=== PATIENT | male | born 1995 | race Caucasian/White ===

== ENCOUNTER 2020-02-18 10:04 | Inpatient (IN) ==
[2020-02-18 16:16] VITALS: BP 113/68
[2020-02-18] MEDS ORDERED: NICOTINE GUM BUCCAL PRN (16:22)
[2020-02-18] MEDS ORDERED: MAALOX PLUS LIQUID PO PRN (16:22)
[2020-02-18] MEDS ORDERED: D5W 1,000 ML IV PRN (16:22)
[2020-02-18] MEDS ORDERED: SEROQUEL PO PRN (16:22)
[2020-02-18] MEDS ORDERED: MOTRIN PO PRN (16:22)
[2020-02-18] MEDS ORDERED: NICODERM PATCH TD PRN (16:22)
[2020-02-18] MEDS ORDERED: ZOFRAN IM PRN (16:22)
[2020-02-18] MEDS ORDERED: PHENOBARBITAL IV PRN (16:22)
[2020-02-18] MEDS ORDERED: TUBERSOL ID ONE (16:22)
[2020-02-18] MEDS ORDERED: IMODIUM PO PRN ×2 (16:22)
[2020-02-18] MEDS ORDERED: SENOKOT PO PRN (16:22)
[2020-02-18] MEDS ORDERED: ZOFRAN ODT PO PRN (16:22)
[2020-02-18] MEDS ORDERED: TYLENOL PO PRN (16:22)
[2020-02-18] MEDS ORDERED: DULCOLAX PR PRN (16:22)
[2020-02-18] MEDS ORDERED: ZOFRAN IV PRN (16:22)
[2020-02-18] MEDS ORDERED: DESYREL PO PRN (16:22)
[2020-02-18 17:11] LABS: HEMATOCRIT 39.8 % (42.0-52.0); HEMOGLOBIN 14.5 g/dL (14.0-18.0); MCH 30.2 PG (27-31); MCHC 36.4 g/dL (33-37); MCV 82.9 FL (81-99); MPV 10.2 FL (7.4-10.4); RBC 4.8 XMIL (4.7-6.1); RDW 12.7 % (11.5-14.5); WBC 7.65 X1000 (4.8-10.8)
[2020-02-18 17:22] LABS: AGAP 11; ALBUMIN 4.5 g/dL (3.5-5.0); ALKALINE PHOSPHATASE 72 U/L (32-122); AMYLASE 42 U/L (20-200); BUN 10 mg/dL (8-22); CALCIUM 9.6 mg/dL (8.8-10.2); CHLORIDE 101 mmol/L (98-107); COSMO 278; ESTIMATED GFR > 60; GLUCOSE 90 mg/dL (70-104); GOT 14 U/L (10-34); GPT 10 U/L (10-44); LIPASE 30 U/L (13-60); POTASSIUM 4.2 mmol/L (3.5-5.1); SODIUM 140 mmol/L (136-145); TCO2 29 mmol/L (25-35); TOTAL PROTEIN 7.3 g/dL (6.3-8.3)
[2020-02-18 17:30] LABS: URINE SOURCE VOIDED
[2020-02-18 17:38] LABS: BILIRUBIN URINE NEGATIVE (NEGATIVE); BLOOD URINE NEGATIVE (NEGATIVE); COLOR YELLOW; GLUCOSE URINE NEGATIVE (NEGATIVE); KETONE URINE TRACE mg/dL (NEGATIVE); LEUKOCYTES URINE NEGATIVE (NEGATIVE); NITRITE URINE NEGATIVE (NEGATIVE); PROTEIN URINE 50 mg/dL (NEGATIVE); SP GRAVITY URINE 1.039; TURBIDITY URINE HAZY (CLEAR); UROBILINOGEN URINE 3 mg/dL (NORMAL)
[2020-02-18 17:40] LABS: UR EPITHELIAL CELLS <10 /HPF (<10); URINE BACTERIA NEGATIVE /HPF; URINE RBC <10 /HPF (<10); URINE WBC <10 /HPF (<10)
[2020-02-18 17:41] LABS: URINE CASTS NONE SEEN; URINE CRYSTALS NONE SEEN; URINE SMALL ROUND CELLS NONE SEEN; URINE YEAST NONE SEEN
[2020-02-18 17:46] LABS: UR CANNABINOIDS QUAL PRESUMPTIVE POSITIVE (NONE DETECT)
[2020-02-18 17:47] LABS: UR AMPHETAMINES QUAL PRESUMPTIVE POSITIVE (NONE DETECT); UR BARBITUATES QUAL NONE DETECTED (NONE DETECT); UR BENZODIAZEPIN QUAL PRESUMPTIVE POSITIVE (NONE DETECT); UR COCAINE QUAL NONE DETECTED (NONE DETECT); UR METHADONE QUAL NONE DETECTED (NONE DETECT); UR METHAMPHETAMINE QUAL PRESUMPTIVE POSITIVE (NONE DETECT); UR OPIATES QUAL NONE DETECTED (NONE DETECT); UR OXYCODONE QUAL NONE DETECTED (NONE DETECT); UR PCP QUAL NONE DETECTED (NONE DETECT); UR PROPOXYPHENE QUAL NONE DETECTED (NONE DETECT); UR TCA QUAL NONE DETECTED (NONE DETECT)
[2020-02-18] MEDS ORDERED: SUBUTEX SL SCH (21:00)
--- NOTE | 2020-02-18 22:35 | HISTORY AND PHYSICAL ---
CHIEF COMPLAINT: Nausea and vomiting. HISTORY OF PRESENT ILLNESS: This patient is a 24-year-old male who presented to [facility] secondary to nausea, vomiting, abdominal pain, and states he wants to get off drugs because he has no other choice. SOCIAL HISTORY: He is single. Lives at home in [place]. PAST MEDICAL HISTORY: History of seizures 2 days ago while on meth, history of chronic anxiety, chronic ADD. MEDICATIONS: No prescription medications. ALLERGIES: Naloxone causing hives. REVIEW OF SYSTEMS: CINA score is 15 secondary to restless, constant yawning, sniffing, abdominal cramping, diarrhea, mild nausea, muscle aches, occasional paresthesias, watery eyes. Denies any suicidal or homicidal ideations. States he was put on Vraylar in the past as well as Lexapro. He has been on Adderall. SUBSTANCE ABUSE HISTORY: Patient was in treatment for Xanax in 2012, heroin 2017 for 7 days, overdosed on fentanyl in 2018, only went to the ER. Notes in 2017, he was at [*][address] [place] [address], left there and started using immediately. December 2018, he was at [facility], left there and started using immediately. June 2019 was at [facility], stayed 3 months, stayed sober 4 months. In September, went to [facility] and was dismissed and started using in 2 to 3 weeks. Notes that substance abuse has caused financial/work problems, relationship problems and legal problems. Started alcohol as early as age 11, currently drinks 3 to 4 times a month. Started marijuana at 14, currently uses 1 to 2 times a month, started depressants at 16, currently uses 10+ times a month, started meth at 21, has been on a 5-day binge, started hallucinogens at 18 has not used in the past 6 months, started opiates at 16, currently uses 10 to 15 times a month and will use IV heroin frequently. Started smoking at 15, currently smokes a pack a day. FAMILY HISTORY: Noncontributory. PHYSICAL EXAMINATION: VITAL SIGNS: Reviewed. GENERAL: Patient is awake, alert. He is ambulating with no difficulty. HEENT: Normocephalic. NECK: Supple. CHEST: Nonlabored. EXTREMITIES: Moves all extremities. NEUROLOGIC: No focal changes. Patient is awake, alert, oriented. ASSESSMENT: 1. Nausea and vomiting. 2. Abdominal pain. 3. Myalgias. 4. Diarrhea. 5. Paresthesias. 6. Paroxysmal sweating. 7. Opiate abuse, withdrawal and stabilization. PLAN: We are going to admit patient to the hospital, begin discussing medication-assisted therapy. The patient desires Subutex as he states Naloxone causes hives. Although that is possible, it is highly unlikely. We will discuss with patient the perils of smoking as well. cc: Sunday Darby MD
--- NOTE | 2020-02-18 22:37 | DISCHARGE SUMMARY ---
ADMISSION DATE: 02/18/2020 DISCHARGE DATE: 02/18/2020 Patient was admitted earlier, stayed in the hospital affectively long enough to go downstairs to smoke and then came back stating he was going home. If he is going to go to group home anyway, he might as well go home and spend time with his family. Therefore he left AMA. No discharge planning or instructions was able to be performed. cc: Sunday Darby MD
[2020-02-19] MEDS ORDERED: PROTONIX PO SCH (07:00)
[2020-02-19] MEDS ORDERED: FOLIC ACID PO SCH (09:00)
[2020-02-19] MEDS ORDERED: VITAMIN B-1 PO SCH (09:00)
[2020-02-19] MEDS ORDERED: THERA M PLUS PO SCH (09:00)
== END 2020-02-18 19:35 | disposition left against medical advice (07) | DRG 392 ==
LOC: P.MEDSURG 15:46
PROVIDERS: ADMIT Family Medicine; ATTEND Family Medicine